=== PATIENT | male | born 1955 | race Caucasian/White ===

== ENCOUNTER 2021-12-09 13:01 | Emergency (ER) | payer SELFPAY ==
[~2021-12-09] VITALS: Ht 170.2 cm; Wt 81.6 kg
[2021-12-09 13:11] VITALS: BP 109/78
--- NOTE | 2021-12-09 13:19 | NUR ---
Pt taken to bed 9, ambulated with steady gait.
--- NOTE | 2021-12-09 13:51 | NUR ---
ERMD AT BEDSIDE EVALUATING PT.
[2021-12-09 13:58] LABS: BASOPHILS # (AUTO) 0.1 K/uL (0.00-0.22); BASOPHILS % (AUTO) 0.6 % (0.0-2.0); EOSINOPHILS # (AUTO) 0.1 K/uL (0-0.4); EOSINOPHILS % (AUTO) 0.8 % (0.0-4.0); HEMATOCRIT 46.2 % (36-52); HEMOGLOBIN 15.6 g/dL (12.0-18.0); LYMPHOCYTES # (AUTO) 1.3 K/uL (2.0-11.5); LYMPHOCYTES % (AUTO) 13.9 % (20.5-51.1); MEAN CORPUSCULAR HEMOGLOBIN 32 pg (27-31); MEAN CORPUSCULAR HGB CONC 34 g/dL (33-37); MEAN CORPUSCULAR VOLUME 93.5 fL (80-94); MONOCYTES # (AUTO) 0.8 K/uL (0.8-1.0); MONOCYTES % (AUTO) 8.3 % (1.7-9.3); NEUTROPHILS % (AUTO) 76.4 % (42.2-75.2); PLATELET COUNT (AUTO) 271 K/uL (140-450); RED BLOOD CELL COUNT(AUTO) 4.94 MIL/uL (4.20-6.10); WHITE BLOOD COUNT (AUTO) 9.2 K/uL (4.8-10.8)
[2021-12-09] MEDS ORDERED: NACL 0.9% 1,000 ML IV ONE (14:00)
[2021-12-09] MEDS ORDERED: KETOROLAC 30 MG/ML VIAL IVP ONE (14:00)
[2021-12-09 14:02] LABS: ALBUMIN 3.2 g/dL (3.4-5.0); CARBON DIOXIDE 23.6 mmol/L (21-32); CREATININE 0.8 mg/dL (0.6-1.3); POTASSIUM 3.6 mmol/L (3.5-5.1); TOTAL BILIRUBIN 0.4 mg/dL (0.0-1.0)
--- NOTE | 2021-12-09 15:06 | NUR ---
US AT BEDSIDE
[2021-12-09] MEDS ORDERED: KETOROLAC 30 MG/ML VIAL ONE (15:37)
--- NOTE | 2021-12-09 16:05 | NUR ---
66/M PRESENTS TO ED [facility] C/O BILATERAL LOWER LEG EDEMA AND PAIN X3 DAYS. PATIENT REPORTS PAIN HAS BEEN WORSENING WITH TOUCH AND AMBULATION, PATIENT ALSO C/O BLOODY DIARRHEA AND LLQ PAIN. DENIES USE OF RECENT MEDS, PATIENT DENIES CP, SOB, FEVERS, COUGH, CHILLS.
[2021-12-09 17:04] VITALS: BP 116/70
--- NOTE | 2021-12-09 17:04 | NUR ---
IV removed, catheter intact and site benign. Applied folded 4x4 gauze and tape to stop bleeding.
--- NOTE | 2021-12-09 17:04 | NUR ---
Patient discharged with v/s stable. Written and verbal after care instructions ABOUT EDEMA AND LOWER GASTROINTESTINAL BLEEDINGgiven and explained. Patient verbalized understanding. Ambulatory with steady gait. All questions addressed prior to discharge. Advised to follow up with PMD.
== END 2021-12-09 17:04 | disposition home or self-care (01) ==
LOC: MED 13:01
DX: R60.0 Localized edema (principal); K92.2 Gastrointestinal hemorrhage, unspecified; K92.1 Melena
CPT/HCPCS: 36415; 74176; 80053; 83605; 83690; 83880; 85025; 87040; 93970; 96361; 96374; 99284; J1885; J7030; Q0092